=== PATIENT | female | born 1975 | race Caucasian/White ===

== ENCOUNTER 2017-07-14 06:30 | Inpatient (IN) | payer OTHER ==
[2017-07-14] VITALS (97 sets, daily range): BP systolic 93–149; BP diastolic 46–119; PULSE 60–112; RESP 16–20; TEMP 97.6–98.2; O2SAT 97
[~2017-07-14] VITALS: Ht 182.9 cm; Wt 95.3 kg
[2017-07-14] MEDS ORDERED: Prenatal Vitamin PO (07:04)
[2017-07-14] MEDS ORDERED: LEVO100T5 PO (07:04)
[2017-07-14] MEDS ORDERED: OXYTOCIN 30 UNITS-500ML PREMIX 500 ML ONE (08:27)
[2017-07-14] MEDS ORDERED: OXYTOCIN 30 UNITS/NS 500ML PREMIX IV SCH ×2 (08:30)
[2017-07-14 08:33] LABS: AUTOMATED NEUTROPHIL # 7.4 TH/MM3 (1.8-7.7); BASOPHIL % 0.2 % (0.0-2.0); EOSINOPHIL # 0.1 TH/MM3 (0-0.4); EOSINOPHIL % 0.6 % (0.0-4.0); HEMOGLOBIN 12.6 GM/DL (11.6-15.3); LYMPH % 19.9 % (9.0-44.0); MEAN CORPUSCULAR HGB CONC 34.1 % (32.0-36.0); MEAN PLATELET VOLUME 9.4 FL (7.0-11.0); MONO % 5.5 % (0.0-8.0); MONOCYTE # 0.6 TH/MM3 (0-0.9); NEUT % 73.8 % (16.0-70.0); PLATELET COUNT 180 TH/MM3 (150-450); RED BLOOD COUNT 4.07 MIL/MM3 (4.00-5.30); RED CELL DISTRIBUTION WIDTH 14.7 % (11.6-17.2); WHITE BLOOD COUNT 10.1 TH/MM3 (4.0-11.0)
[2017-07-14 08:40] LABS: BACTERIA, URINE RARE /hpf; BILIRUBIN, URINE NEG (NEG); BLOOD, URINE NEG (NEG); GLUCOSE,URINE NEG (NEG); KETONE, URINE NEG (NEG); MUCUS URINE FEW /lpf (OCC); NITRITE,URINE NEG (NEG); PH, URINE 6.5 (5.0-8.5); SQUAMOUS EPITHELIAL CELL URINE 4 /hpf (0-5); URINE COLOR YELLOW (YELLW/STRAW); URINE LEUKOCYTE ESTERASE NEG (NEG)
[2017-07-14] MEDS ORDERED: fentaNYL 2MCG-BUPIV 0.125% INJ 100 ML ONE (08:44)
[2017-07-14] MEDS ORDERED: OXYTOCIN 30 UNITS 500ML PREMIX IV ONE (08:45)
[2017-07-14] MEDS ORDERED: LACTATED RINGER'S 1000 ML IV SCH (08:45)
[2017-07-14] MEDS ORDERED: LIDOCAINE HCL 1% 50 ML VIAL I-DERMAL PRN (08:45)
[2017-07-14] MEDS ORDERED: CITRIC ACID-SODIUM CITRATE LIQ 30 ML UDC PO SCH (08:45)
[2017-07-14] MEDS ORDERED: NS 500 ML BOLUS IV PRN (08:45)
[2017-07-14] MEDS ORDERED: NS 1000 ML IV PRN (08:45)
[2017-07-14] MEDS ORDERED: MINERAL OIL 10 ML VIAL TOPICAL PRN (08:45)
[2017-07-14] MEDS ORDERED: LACTATED RINGER'S 1000 ML BOLUS IV PRN (08:45)
[2017-07-14] MEDS ORDERED: LIDOCAINE HCL 1% 50 ML VIAL INFIL PRN (08:45)
[2017-07-14] MEDS ORDERED: ePHEDrine/NS 25 MG/5 ML SYRINGE ONE (08:46)
--- NOTE | 2017-07-14 09:11 | MH ---
cc: VINCENZO COWART DATE OF ADMISSION 07/14/2017 ADMISSION DIAGNOSIS 1. Term 2. Advanced maternal age HISTORY OF PRESENT ILLNESS The patient is a 41-year-old white female para 1-0-0-1, LMP of 10/10/2016, EDC of 07/17/2017. Her course is benign. PAST MEDICAL HISTORY Previous surgery breast augmentation 2000. ALLERGIES None SERIOUS MEDICAL ILLNESSES 1. History of migraine headaches. 2. Hypothyroid for 10 years. SOCIAL HISTORY One previous delivery, rapid 5 pounds 4 ounces at 29 weeks. SOCIAL HISTORY She is . She is a nurse practitioner. Alcohol, tobacco and drugs are none. FAMILY HISTORY Her family history is noncontributory. PHYSICAL EXAM This is a well-nourished well-developed white female. VITAL SIGNS: Stable. Height is 6 feet, weight 205 pounds. HEENT: Exam is normal. CHEST: Clear. HEART: Regular rate. BREASTS: Symmetrical. [place] [address] [place]. Cervix 3-3, 70 vertex zero, AROM clear. ASSESSMENT/PLAN She is now admitted for delivery due to term status, stable cervix, advanced maternal age and size considerations. Should she have failure to progress or distress, she would need a . She wished to proceed. MD LEMUEL Silverio/AISHA /8:40 AM /9:02 AM
[2017-07-14] MEDS ORDERED: BUPIVACAINE HCL PF 0.25% 10 ML VIAL ONE (10:10)
[2017-07-14] MEDS ORDERED: DO NOT ADMINISTER ANTICOAGULANTS PRN (10:15)
[2017-07-14] MEDS ORDERED: NO SYSTEM NARCOTICS PRN (10:15)
[2017-07-14] MEDS ORDERED: ePHEDrine/NS 25 MG/5 ML SYRINGE IV PUSH PRN (10:15)
[2017-07-14] MEDS ORDERED: fentaNYL 2MCG-BUPIV 0.125% 100 ML EPIDURAL SCH (10:15)
[2017-07-14] MEDS ORDERED: ONDANSETRON ODT 4 MG TAB PO PRN (13:30)
[2017-07-14] MEDS ORDERED: ALUMINUM/MAGNESIUM/SIMETH 30 ML CUP PO PRN (13:30)
[2017-07-14] MEDS ORDERED: oxyCODONE/ACETAMINOPHEN 5 MG/325 MG TAB PO PRN ×2 (13:30)
[2017-07-14] MEDS ORDERED: SODIUM CHLORIDE 0.9% FLUSH 10 ML FLUSH IV FLUSH PRN (13:30)
[2017-07-14] MEDS ORDERED: ACETAMINOPHEN 325 MG TAB PO PRN (13:30)
[2017-07-14] MEDS ORDERED: OXYTOCIN 30 UNITS-500ML PREMIX 500 ML IV SCH (13:30)
[2017-07-14] MEDS ORDERED: BENZOCAINE 20% TOPICAL SPRAY 60 ML CAN TOPICAL PRN (13:30)
[2017-07-14] MEDS ORDERED: DOCUSATE SODIUM 50 MG/SENNA 8.6 MG TAB PO PRN (13:30)
[2017-07-14] MEDS ORDERED: WITCH HAZEL 50%/GLYCERIN 12.5% 40 PAD JAR TOPICAL PRN (13:30)
[2017-07-14] MEDS ORDERED: DIPHTH/TETANUS/ACEL PERTUSSIS (BOOSTER) 0.5 ML VIAL/PFS IM ONE (16:00)
[2017-07-14] MEDS ORDERED: MEASLES, MUMPS, RUBELLA VACCINE 0.5 ML VIAL SQ ONE (16:00)
[2017-07-14] MEDS: IBUPROFEN 800 MG TAB PO PRN (16:37)
[2017-07-14] MEDS ORDERED: ZOLPIDEM TARTRATE 5 MG TAB PO PRN (21:00)
[2017-07-14] MEDS: SODIUM CHLORIDE 0.9% FLUSH 10 ML FLUSH IV FLUSH SCH (22:44)
[2017-07-15] MEDS: IBUPROFEN 800 MG TAB PO PRN ×3 (02:22→22:58)
[2017-07-15 05:59] LABS: AUTOMATED NEUTROPHIL # 7.9 TH/MM3 (1.8-7.7); BASOPHIL % 0.3 % (0.0-2.0); EOSINOPHIL # 0.1 TH/MM3 (0-0.4); EOSINOPHIL % 1.1 % (0.0-4.0); HEMATOCRIT 33.4 % (35.0-46.0); HEMOGLOBIN 11.3 GM/DL (11.6-15.3); LYMPH % 21.5 % (9.0-44.0); LYMPHOCYTE # 2.4 TH/MM3 (1.0-4.8); MEAN CELL VOLUME 91.2 FL (80.0-100.0); MEAN CORPUSCULAR HEMOGLOBIN 30.8 PG (27.0-34.0); MEAN CORPUSCULAR HGB CONC 33.8 % (32.0-36.0); MEAN PLATELET VOLUME 8.7 FL (7.0-11.0); MONO % 7.1 % (0.0-8.0); MONOCYTE # 0.8 TH/MM3 (0-0.9); PLATELET COUNT 161 TH/MM3 (150-450); RED BLOOD COUNT 3.66 MIL/MM3 (4.00-5.30); RED CELL DISTRIBUTION WIDTH 15.1 % (11.6-17.2); WHITE BLOOD COUNT 11.2 TH/MM3 (4.0-11.0)
[2017-07-15] MEDS: LEVOTHYROXINE SODIUM 100 MCG TAB PO SCH (07:02)
[2017-07-15 08:00] VITALS: BP 106/66; RESP 18; O2SAT 99
[2017-07-15 08:05] VITALS: PULSE 70
[2017-07-15 20:00] VITALS: BP 108/60; PULSE 64; RESP 18; TEMP 97.7; O2SAT 98
[2017-07-15] MEDS: SODIUM CHLORIDE 0.9% FLUSH 10 ML FLUSH IV FLUSH SCH (21:00)
[2017-07-16] MEDS: LEVOTHYROXINE SODIUM 100 MCG TAB PO SCH (06:33)
[2017-07-16 07:32] VITALS: BP 100/62; PULSE 66; RESP 18; TEMP 98.2
--- NOTE | 2017-07-16 11:14 | HHI.DCPOC ---
Discharge Care Plan Report Symptoms to Your Doctor -Temperature above 100.5 degrees -Redness, of incision or excessive or foul smelling drainage -Unusual pain or calf pain -Increased vaginal bleeding -Painful or difficulty urinating -Feelings of extreme sadness or anxiety after 2 weeks Goals to Promote Your Health * To prevent worsening of your condition and complications * To maintain your health at the optimal level Directions to Meet Your Goals Take your medications as prescribed Follow your dietary instruction Follow activity as directed Ensure plenty of rest for recovery Drink fluids for hydration Keep your appointments as scheduled Take your immunizations and boosters as scheduled If your symptoms worsen call your PCP, if no PCP go to Urgent Care Center or Emergency Room Smoking is Dangerous to Your Health. Avoid second hand smoke Call the 24-hour crisis hotline for domestic abuse at Dayne Mayfield MD Jul 16, 2017 11:14
--- NOTE | 2017-07-16 21:27 | MD ---
cc: VINCENZO COWART ADMISSION DATE: 07/14/2017 DISCHARGE DATE: 07/16/2017 ADMISSION DIAGNOSES 1. Term . 2. Advanced maternal age. DISCHARGE DIAGNOSES 1. Term . 2. Advanced maternal age. 3. Delivered. HISTORY OF PRESENT ILLNESS A 41-year-old , white female para 1-0-0-1, LMP of 10/10/2016, EDC of 07/17/2017. Her course was benign. First TM screen was normal. She progressed to term and desired delivery at term status, favorable cervix and enlarging size. Her GBS was negative. She was admitted on 07/14/2017, received epidural anesthesia, Pitocin on induction and rapidly progressed to a spontaneous vaginal delivery over a midline episiotomy. A viable vigorous male, Apgars were 08/09. weight 10 pounds 1 ounce. did well. Discharged home in excellent condition on 07/16/2017. She was carefully instructed in , perineal, and circumcision care. Advised NPV, light activity. Return to see me in 6 weeks. She is to call for abnormal pain, bleeding, temperature, signs of infection or depression or any problem with the episiotomy or circumcision healing. Her Rh type was positive. She will [id number] Motrin, Tylenol as pain relief. She will continue her levothyroxine 100 micrograms daily. MD LEMUEL Silverio/SALLY /11:14 AM /9:00 PM
== END 2017-07-16 13:05 | disposition home or self-care (01) | DRG 775 ==
LOC: H2EB 06:30 → H1EA 16:58
PROVIDERS: ADMIT Obstetrics & Gynecology; ATTEND Obstetrics & Gynecology
PROC: 10E0XZZ Delivery of Products of Conception, External Approach (ICD-10-PCS; principal; 2017-07-14)
PROC: 0W8NXZZ Division of Female Perineum, External Approach (ICD-10-PCS; 2017-07-14)
PROC: 3E033VJ Introduction of Other Hormone into Peripheral Vein, Percutaneous Approach (ICD-10-PCS; 2017-07-14)
PROC: 3E0R3BZ Introduction of Anesthetic Agent into Spinal Canal, Percutaneous Approach (ICD-10-PCS; 2017-07-14)
PROC: 00HU33Z Insertion of Infusion Device into Spinal Canal, Percutaneous Approach (ICD-10-PCS; 2017-07-14)
DX: O36.63X0 Maternal care for excessive fetal growth, third trimester, not applicable or unspecified (principal); E03.9 Hypothyroidism, unspecified; O99.284 Endocrine, nutritional and metabolic diseases complicating childbirth; Z37.0 Single live birth; Z3A.40 40 weeks gestation of pregnancy; Z98.82 Breast implant status
CPT/HCPCS: 59025; 80307; 81001; 85025; 86900; 86901; 90715; J2590; J3010; J7120